=== PATIENT | male | born 1975 | race Caucasian/White ===

== ENCOUNTER 2020-12-14 10:10 | Emergency (ER) | payer OTHER, SELFPAY ==
[2020-12-14 10:17] VITALS: BP 144/89; PULSE 83; RESP 12; TEMP 36.7; O2SAT 99
--- NOTE | 2020-12-14 10:17 | ED.LOWEXIN ---
HPI - Extremity Injury (Lower) General Chief Complaint: Extremity Problem,Nontraumatic Stated Complaint: L KNEE PAIN Time Seen by Provider: 12/14/20 10:17 History of Present Illness HPI Narrative: Patient is a 45-year-old male who presents the urgent care with complaints of a month long history of left knee pain. Patient states that the pain exacerbates when he bears weight otherwise at rest he has no pain. Patient states that he may have stepped on it wrong . But denies of any known trauma, injury or fall. Denies of any past injury to the left knee. Patient did have an appointment with his doctor last week which was canceled for an emergency with the doctor . Patient denies any other visits for his current complaint. No other acute complaints. No acute distress noted. Patient is aware of the plan of care. Some parts of this dictation were generated by voice recognition software and may contain typographical and/or grammatical inaccuracies. Related Data Home Medications Medication Instructions Recorded Confirmed duloxetine mg PO 12/14/20 hydroxyzine HCl 12/14/20 trazodone 12/14/20 Allergies Allergy/AdvReac Type Severity Reaction Status Date / Time No Known Allergies Allergy Mild Verified 07/09/09 21:52 Review of Systems Review of Systems: Narrative: CONSTITUTIONAL: Denies fever, chills, or sweats. EYES: Denies visual changes, redness, or discharge. ENT: Denies rhinorrhea, congestion, sore throat, or otalgia. CARDIOVASCULAR: Denies chest pain, palpitations, or edema. RESPIRATORY: Denies cough or dyspnea. GASTROINTESTINAL: Denies abdominal pain, nausea, vomiting, or diarrhea. GENITOURINARY: Denies dysuria or hematuria. SKIN: Denies rash or itching. MUSCULOSKELETAL: Reports of left knee pain to the lateral aspect NEUROLOGIC: Denies headache, numbness, or weakness. All other systems reviewed are negative, except as documented in HPI. PMFSH Comments At the time of my signature, I reviewed and agree with the nursing past medical, surgical, social, and family history. There is no relevant family history pertinent to the patient complaint. Exam Narrative: Exam Narrative: GENERAL: This is a well-nourished, well-developed patient, in no apparent distress. HEAD: normocephalic, atraumatic. EYES: PERRL. Sclera clear/white. Vision is grossly intact. EARS: External ears normal NOSE: External nose normal with no obvious nasal discharge, nares without redness, no rhinorrhea. THROAT: Mucous membranes moist NECK: Neck supple CARDIOVASCULAR: Regular rate and rhythm without murmurs, gallops, or rubs. RESPIRATORY: Clear to auscultation. Breath sounds equal bilaterally. No wheezes, rales, or rhonchi. SKIN: warm, intact with no suspicious lesions or rash, good texture and turgor. NEURO: awake, alert, and oriented to person, place and time. There were no obvious focal neurologic abnormalities. EXTREMITIES: No obvious ecchymosis, erythema, edema noted to the left knee. No tenderness to the left knee. Pain to the anterior medial aspect with weightbearing. Positive strong left pedal pulse with capillary fill less than 2 seconds. Range of motion within normal limits. Drawer test negative. No obvious deformity/Retana's cyst. Course Vital Signs Vital signs: Vital Signs Temperature 98.0 F 12/14/20 10:17 Pulse Rate 83 12/14/20 10:17 Respiratory Rate 12 12/14/20 10:17 Blood Pressure 144/89 H 12/14/20 10:17 Pulse Oximetry 99 12/14/20 10:17 Temperature 98.0 F 12/14/20 10:17 Pulse Rate 83 12/14/20 10:17 Respiratory Rate 12 12/14/20 10:17 Blood Pressure 144/89 H 12/14/20 10:17 Pulse Oximetry 99 12/14/20 10:17 Reviewed-patient is informed that they may have pre-hypertension or hypertension based on a blood pressure reading in the department. I recommend the patient call the primary care provider listed on their discharge instructions or a physician of their choice this week to arrange follow-up for
== END 2020-12-14 10:35 | disposition home or self-care (01) ==
PROVIDERS: Emergency Provider Nurse Practitioner Family; PCP Family Medicine
DX: M25.562 Pain in left knee (principal)
CPT/HCPCS: 99203; G0463